=== PATIENT | male | born 1980 | race Caucasian/White ===

== ENCOUNTER 2019-05-22 11:55 | Emergency (ER) | payer BC ==
[~2019-05-22] VITALS: Ht 165.1 cm; Wt 70.3 kg
--- OUTSIDE RECORDS SUMMARY | 2019-05-22 11:58 | XMS REPORT | Clinical Summary ---
Author Author [facility] Address Unknown Phone Unavailable Care Team Providers Care Wind Turbine Erector Name Role Phone Asked, No Pcp PCP Unavailable Allergies Not on File Medications Not on file Active Problems Not on file Social History Date Tobacco Use Types Packs/Day Years Used Never Assessed Sex Assigned at Date Recorded Not on file Industry Job Start Date Occupation Not on file Not on file Not on file Travel End Travel History Travel Start No recent travel history available. 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
--- NOTE | 2019-05-22 12:13 | NUR ---
DAVI KEG RAISER EVALUATED IN TRIAGE
--- NOTE | 2019-05-22 13:48 | Diagnostic Imaging Report ---
History: Fall, hit the posterior head Comparison studies:None Technique: Axial images were obtained from the brain and cervical spine. Coronal and sagittal images reconstructed from the axial data. Intravenous contrast: None Dose modulation, iterative reconstruction, and/or weight based adjustment of the mA/kV was utilized to reduce the radiation dose to as low as reasonably achievable. Findings: Head CT: Scalp/skull: Right parietal ventriculostomy catheter with its tip at the left lateral ventricle body. No fractures, blastic or lytic lesions. Brain sulci: Mildly prominent. Ventricles: Moderately prominent without dilation of the temporal horns or transependymal migration of CSF. Cavum septum pellucidum as a normal variant. No active hydrocephalus. Extra-axial spaces: Enlarged suprasellar and interpeduncular cisterns with nonvisualization of the third ventricle floor and inferior mass effect over the hypothalamus with superior displacement, lateral mass effect over the mesial temporal lobes with lateral displacement and anterior mass effect over the brainstem with posterior displacement, most likely related to the right and a cyst. No fluid acute collections. Parenchyma: No abnormal densities. Thinning of the corpus callosum more significant at the posterior body and splenium. No masses, hemorrhage, acute or chronic cortical vascular insults. Sellar/suprasellar region: Anterior displacement of the optic chiasm and infundibulum with normal appearance of the pituitary gland. Craniocervical junction: Patent foramen magnum. No Chiari one malformation. Atherosclerotic calcifications of the carotid siphons. Opacification of the hypoplastic right frontal and ethmoid sinuses, related to nonspecific inflammation. Under pneumatization and partial opacification of the right mastoid air cells Cervical spine CT: Fractures: None. Soft tissues: No gross abnormalities. Atlantoaxial articulation: Intact. Alignment: Normal lordosis. No scoliosis. Cervicomedullary junction: No abnormalities. Patent foramen magnum. Vertebrae: No infection or neoplasm. Degenerative changes: None. Incidental findings: None. Impression: Head CT: 1. No acute intracranial abnormality. 2. Basal cisterns arachnoid cyst as described above. 3. Moderate ventricular prominence without evidence of active hydrocephalus. Cervical spine CT: 1. No abnormalities. 2. Cannot exclude ligament, spinal cord and or vascular abnormalities on the basis of this examination. Signed by: DR Jefferson Mac M.D. on 05/22/2019 1:45 PM
== END 2019-05-22 14:31 | disposition home or self-care (01) ==
LOC: ER 11:55
DX: S00.93XA Contusion of unspecified part of head, initial encounter (principal); S00.01XA Abrasion of scalp, initial encounter; W17.89XA Other fall from one level to another, initial encounter; Y92.481 Parking lot as the place of occurrence of the external cause; G91.9 Hydrocephalus, unspecified
CPT/HCPCS: 70450; 72125; 99283

== ENCOUNTER 2019-12-13 12:08 | Inpatient (IN) | payer BC ==
[~2019-12-13] VITALS: Ht 165.1 cm; Wt 72.6 kg
--- OUTSIDE RECORDS SUMMARY | 2019-12-13 12:11 | XMS REPORT ---
Author Author [facility] Address Unknown Phone Unavailable Care Team Providers Care Project Structural Engineer Name Role Phone Nilo WHITE [place] Unavailable Unavailable Payers Payer Name Policy Type Policy Number Effective Date Expiration Date Problems This patient has no known problems. Allergies, Adverse Reactions, Alerts Allergy Name Allergy Type Status Severity Reaction(s) Onset Date Inactive Date Treating Clinician Comments No Known Allergies DA Active U 2015-04-15 00:00:00 Medications This patient has no known medications. Results Test Description Test Time Test Comments Text Results Atomic Results Result Comments CT CERVICAL SPINE WO 2019-05-22 13:17:00 [place] [address] Patient Name: ERICKSON HDZ MR #: [id number] : 1980 Age/Sex: 39/M Req #: [id number] Adm Physician: Ordered by: OLYA LIZ MACHINE MOLDER SQUEEZE Report #: [id number] Location: ER Room/Bed: Procedure: [id number] CT/CT CERVICAL SPINE WO Exam Date: 05/22/19 Exam Time: 1210 REPORT STATUS: Signed History: Fall, hit the posterior head Comparison studies:None Technique: Axial images were obtained from the brain and cervical spine. Coronal and sagittal images reconstructed from the axial data. Intravenous contrast: None Dose modulation, iterative reconstruction, and/or weight based adjustment of the mA/kV was utilized to reduce the radiation dose to as low as reasonably achievable. Findings: Head CT: Scalp/sk ull: Right parietal ventriculostomy catheter with its tip at the left lateral ventricle body. No fractures, blastic or lytic lesions. Brain sulci: Mildly prominent. Ventricles: Moderately prominent without dilation of the temporal horns or transependymal migration of CSF. Cavum septum pellucidum as a normal variant. No active hydrocephalus. Extra-axial spaces: Enlarged suprasellar and interpeduncular cisterns with nonvisualization of the third ventricle floor and inferior mass effect over the hypothalamus with superior displacement, lateral mass effect over the mesial temporal lobes with lateral displacement and anterior mass effect over the brainstem with posterior displacement, most likely related to the right and a cyst. No fluid acute collections. Parenchyma: No abnormal densities. Thinning of the corpus callosum more significant at the posterior body and splenium. No masses, hemorrhage, acute or chronic cortical vascular insults. Sellar/supr asellar region: Anterior displacement of the optic chiasm and infundibulum with normal appearance of the pituitary gland. Craniocervical junction: Patent foramen magnum. No Chiari one malformation. Atherosclerotic calcifications of the carotid siphons. Opacification of the hypoplastic right frontal and ethmoid sinuses, related to nonspecific inflammation. Under pneumatization and partial opacification of the right mastoid air cells Cervical spine CT: Fractures: None. Soft tissues: No gross abnormalities. Atlantoaxial articulation: Intact. Alignment: Normal lordosis. No scoliosis. Cervicomedullary junction: No abnormalities. Patent foramen magnum. Vertebrae: No infection or neoplasm. Degenerative changes: None. Incidental findings: None. Impression: Head CT: 1. No acute intracranial abnormality. 2. Basal cisterns arachnoid cyst as described above. 3. Moderate ventricular prominence without evidence of active hydroce phalus. Cervical spine CT: 1. No abnormalities. 2. Cannot exclude ligament, spinal cord and or vascular abnormalities on the basis of this examination. Signed by: DR Jefferson Mac M.D. on 05/22/2019 1:45 PM Dictated By: JEFFERSON CAMACHO MD [id number] Transcribed By: WELLINGTON on 05/22/19 1345 COPY TO: OLYA LIZ MACHINE MOLDER SQUEEZE CT BRAIN WO 2019-05-22 13:17:00 [place] [address] Patient Name: ERICKSON HDZ MR #: [id number] : 1980 Age/Sex: 39/M Req #: [id number] Adm Physician: Ordered by: OLYA LIZ MACHINE MOLDER SQUEEZE Report #: [id number] Location: ER Room/Bed: Procedure: [id number] CT/CT BRAIN WO Exam Date: 05/22/19 Exam Time: 1210 REPORT STATUS: Signed History: Fall, hit the posterior head Comparison studies :None Technique: Axial images were obtained from the brain and cervical spine. Coronal and sagittal images reconstructed from the axial data. Intravenous contrast: None Dose modulation, iterative reconstruction, and/or weight based adjustment of the mA/kV was utilized to reduce the radiation dose to as low as reasonably achievable. Findings: Head CT: Scalp/skull: Right parietal ventriculostomy catheter with its tip at the left lateral ventricle body. No fractures, blastic or lytic lesions. Brain sulci: Mildly prominent. Ventricles: Moderately prominent without dilation of the temporal horns or transependymal migration of CSF. Cavum septum pellucidum as a normal variant. No active hydrocephalus. Extra-axial spaces: Enlarged suprasellar and interpeduncular cisterns with nonvisualization of the third ventricle floor and inferior mass effect over the hypothalamus with superior displacement, lateral mass effect over the mesial temporal lobes with lateral displacement and anterior mass effect over the brainstem with posterior displacement, most likely related to the right and a cyst. No fluid acute collections. Parenchyma: No abnormal densities. Thinning of the corpus callosum more significant at the posterior body and splenium. No masses, hemorrhage, acute or chronic cortical vascular insults. Sellar/suprasellar region: Anterior displacement of the optic chiasm and infundibulum with normal appearance of the pituitary gland. Craniocervical junction: Patent foramen magnum. No Chiari one malformation. Ath erosclerotic calcifications of the carotid siphons. Opacification of the hypoplastic right frontal and ethmoid sinuses, related to nonspecific inflammation. Under pneumatization and partial opacification of the right mastoid air cells Cervical spine CT: Fractures: None. Soft tissues: No gross abnormalities. Atlantoaxial articulation: Intact. Alignment: Normal lordosis. No scoliosis. Cervicomedullary junction: No abnormalities. Patent foramen magnum. Vertebrae: No infection or neoplasm. Degenerative changes: None. Incidental findings: None. Im pression: Head CT: 1. No acute intracranial abnormality. 2. Basal cisterns arachnoid cyst as described above. 3. Moderate ventricular prominence without evidence of active hydrocephalus. Cervical spine CT: 1. No abnormalities. 2. Cannot exclude ligament, spinal cord and or vascular abnormalities on the basis of this examination. Signed by: DR Jefferson Mac M.D. on 05/22/2019 1:45 PM Dictated By: JEFFERSON MAC MD 1344 Transcribed By: WELLINGTON on 05/22/19 1340 COPY TO: OLYA LIZ NP
--- NOTE | 2019-12-13 12:33 | NUR ---
DR. WHITE AT BEDSIDE EVALUATING PATIENT
[2019-12-13 12:39] LABS: BASOPHILS # (AUTO) 0.1 (0.0-0.1); BASOPHILS % 1.4 % (0.0-1.0); EOSINOPHILS # (AUTO) 0.4 (0.0-0.4); EOSINOPHILS % 5.4 % (0.0-6.0); HEMATOCRIT 29.3 % (38.2-49.6); HEMOGLOBIN 9.6 g/dL (14.0-18.0); LYMPHOCYTES # (AUTO) 2.7 (1.0-3.2); LYMPHOCYTES % 34.7 % (18.0-39.1); MEAN CORPUSCULAR HEMOGLOBIN 34.2 pg (28-32); MEAN CORPUSCULAR HGB CONC 32.8 g/dL (31-35); MEAN CORPUSCULAR VOLUME 104.3 fL (81-99); MONOCYTES # (AUTO) 0.5 (0.2-0.8); MONOCYTES % 6.7 % (4.4-11.3); NEUTROPHILS # (AUTO) 3.9 (2.1-6.9); NEUTROPHILS % 50.2 % (38.7-80.0); PLATELET COUNT 221 x10e3/uL (140-360); RED BLOOD COUNT 2.81 x10e6/uL (4.3-5.7); RED CELL DISTRIBUTION WIDTH 14.1 % (11.7-14.4)
[2019-12-13] MEDS ORDERED: SODIUM CHLORIDE 0.9% 1000ML 1,000 ML IV STA ×2 (12:41→14:00)
[2019-12-13] MEDS ORDERED: ONDANSETRON HCL INJ 2MG/ML 2ML 2 MG/ML VIAL IV NR (12:45)
[2019-12-13 13:00] LABS: ALANINE AMINOTRANSFERASE 27 IU/L (0-55); ALBUMIN/GLOBULIN RATIO 1.5 (0.8-2.0); ALKALINE PHOSPHATASE 37 IU/L (40-150); AMYLASE 102 U/L (25-125); ANION GAP 11.2 mmol/L (8-16); BLOOD UREA NITROGEN 18 mg/dL (7-26); BUN/CREATININE RATIO 9 (6-25); CALCIUM 8.6 mg/dL (8.4-10.2); CARBON DIOXIDE 26 mmol/L (22-29); CHLORIDE 105 mmol/L (98-107); CREATINE KINASE 2023 IU/L (30-200); CREATININE, SERUM 2.04 mg/dL (0.72-1.25); EST GLOMERULAR FILTRATION RATE 36 ML/MIN (60-); GLUCOSE 145 mg/dL (74-118); LIPASE 86 U/L (8-78); POTASSIUM 3.2 mmol/L (3.5-5.1); SODIUM 139 mmol/L (136-145)
--- NOTE | 2019-12-13 13:19 | Diagnostic Imaging Report ---
Examination: Single AP view of the chest. COMPARISON: None. INDICATION: Nausea and dizziness DISCUSSION: Lines/tubes: The patient catheter. Lungs: The lungs are well inflated and clear. No pneumonia or pulmonary edema. Pleura: No pleural effusion or pneumothorax. Heart and mediastinum: Cardiomegaly. Bones and soft tissues: No acute bony abnormalities. IMPRESSION: 1. Cardiomegaly without decompensation Signed by: Dr. Raman Nolen M.D. on 12/13/2019 1:15 PM
--- NOTE | 2019-12-13 13:37 | Diagnostic Imaging Report ---
History:Weakness, dizziness Comparison studies: Head CT on 05/22/2019 Technique: Axial images were obtained from the skull base to the vertex. Coronal and sagittal images reconstructed from the axial data. Dose modulation, iterative reconstruction, and/or weight based adjustment of the mA/kV was utilized to reduce the radiation dose to as low as reasonably achievable. Intravenous contrast: None Findings: Scalp/skull: A right inferior parietal shunt catheter remains in place with its tip across midline in the body of the left lateral ventricle. Old bilateral frontal zandra holes are still visualized. Extra-axial spaces: Diffusely enlarged basal cisterns (due to an arachnoid or neuroepithelial cyst), remains associated with superior and anterior displacement of the the floor of the third ventricle and anterior displacement of the pituitary stalk and optic chiasm. Brain sulci: Moderately prominent more than expected for patient's age. Ventricles: The third and lateral ventricles remain moderately dilated but the fourth is relatively normal in size. No hypodensities the margins of the lateral ventricles to suggest the presence of acute hydrocephalus. Parenchyma: No abnormal densities No masses, hemorrhage, acute or chronic cortical vascular insults. Sellar/suprasellar region: No intrasellar abnormalities Craniocervical junction: Patent foramen magnum. No Chiari one malformation. Incidental findings: Atherosclerotic calcifications in the carotid siphons . Impression: 1. No acute abnormalities. 2. No changes when compared to the head CT on 05/22/2019 Persistent findings: 1. Right inferior parietal shunt catheter in place. 2. An arachnoid cyst in the basal cisterns remains associated with moderate dilatation of the third and lateral ventricles. The dilatation is chronic and probably compensated 3. Moderate generalized volume loss is more than expected for patient's age Signed by: Dr. Tam Alas M.D. on 12/13/2019 1:34 PM
[2019-12-13] MEDS ORDERED: SODIUM CHLORIDE 0.9% 1000ML 1,000 ML ONE (14:06)
[2019-12-13 14:17] LABS: COLOR,URINE YELLOW (YELLOW)
[2019-12-13 14:18] LABS: CLARITY,URINE CLEAR (CLEAR); KETONES,URINE NEGATIVE (NEGATIVE); LEUKOCYTE ESTERASE ,URINE NEGATIVE (NEGATIVE); NITRITE,URINE NEGATIVE (NEGATIVE); PROTEIN,URINE DIPSTICK TRACE (NEGATIVE)
[2019-12-13 14:19] LABS: AMPHETAMINES SCREEN,URINE NEGATIVE (NEGATIVE); BENZODIAZEPINES SCREEN,URINE NEGATIVE (NEGATIVE); PHENCYCLIDINE SCREEN,URINE NEGATIVE (NEGATIVE)
[2019-12-13 14:20] LABS: BILIRUBIN,URINE NEGATIVE (NEGATIVE); URINE UROBILINOGEN 0.2 mg/dL (0.2 - 1)
[2019-12-13] MEDS ORDERED: ONDANSETRON HCL INJ 2MG/ML 2ML 2 MG/ML VIAL IV PRN (14:30)
[2019-12-13 14:36] LABS: BACTERIA,URINE RARE /HPF; EPITHELIAL CELLS,URINE FEW /LPF
[2019-12-13] MEDS ORDERED: POTASSIUM CHLORIDE 20 MEQ TAB CR PO NR (15:00)
[2019-12-13] MEDS: FAMOTIDINE 20 MG/2 ML VIAL IV SCH (15:20)
[2019-12-13] MEDS: SODIUM CHLORIDE 0.9% 1000ML 1,000 ML IV SCH ×3 (15:21→22:45)
--- NOTE | 2019-12-13 15:29 | NUR ---
REC'D REPORT FROM ANDREINA LARSON FOR CONTINUITY OF CARE.
--- NOTE | 2019-12-13 15:40 | NUR ---
report called to reese gonzales for this pt to go to [id number]
[2019-12-13 16:24] VITALS: BP 134/81
--- NOTE | 2019-12-13 16:53 | NUR ---
ASSUMED CARE AT 1600. PT RESTING IN BED. ACYANOTIC. NO DISTRESS NOTED. PATIENT'S MOTHER PRESENT AT BEDSIDE.
[2019-12-13] MEDS ORDERED: HYDRALAZINE HCL 20 MG/ML VIAL IV PRN (17:00)
--- NOTE | 2019-12-13 17:27 | NUR ---
NOTIFIED JULEE WRIGHT NP OF PATIENT'S REQUEST FOR PAIN MEDICATION FOR PAIN REPORTED IN LOWER BACK. NEW ORDERS NOTED.
[2019-12-13] MEDS ORDERED: TRAMADOL HCL 50 MG TAB PO PRN (17:30)
--- NOTE | 2019-12-13 17:32 | NUR ---
NEW THERMOMETER TO PATIENT'S ROOM. BODY TEMPERATURE MEASURING 97.1 DEGREES F ORAL.
[2019-12-13] MEDS ORDERED: MORPHINE SULFATE 2 MG/ML SYR 1ML IV PRN (18:00)
[2019-12-13 18:55] LABS: CREATINE KINASE 2005 IU/L (30-200)
--- NOTE | 2019-12-13 19:10 | NUR ---
Pt awake alert and oriented. Resting in bed. Call light in reach. Bed low. No distress noted. Report given to ANDREINA Luna.
[2019-12-13 20:14] VITALS: BP 145/91
[2019-12-13 21:30] VITALS: BP 145/91
--- NOTE | 2019-12-13 21:30 | NUR ---
PATIENT RESTING IN BED AOX3, NO SIGNS OF DISTRESS NOTED. IV FLUIDS ARE RUNNING AT ORDERED RATE AND PATIENT VOICES NO PAIN AT THIS TIME. PATIENT USING URINAL AND URINE IS PALE YELLOW AND CLEAR, INSTRUCTED TO USE CALL LIGHT FOR ASSISTANCE TO RESTROOM DUE TO SYNCOPE AND PREVIOUS FALL AT HOME. BED IS IN LOWEST POSITION, BOTH SIDE RAILS ARE UP, CALL LIGHT IS WITH IN EASY REACH, WILL CONTINUE TO MONITOR.
[2019-12-14] VITALS (9 sets, daily range): BP systolic 113–162; BP diastolic 74–96
[2019-12-14] MEDS: FAMOTIDINE 20 MG/2 ML VIAL IV SCH ×2 (02:47→16:50)
[2019-12-14] MEDS: SODIUM CHLORIDE 0.9% 1000ML 1,000 ML IV SCH (05:51)
[2019-12-14 06:03] LABS: BASOPHILS # (AUTO) 0.1 (0.0-0.1); BASOPHILS % 1.5 % (0.0-1.0); EOSINOPHILS # (AUTO) 0.3 (0.0-0.4); EOSINOPHILS % 4.5 % (0.0-6.0); HEMATOCRIT 27.5 % (38.2-49.6); LYMPHOCYTES # (AUTO) 2.1 (1.0-3.2); MEAN CORPUSCULAR HEMOGLOBIN 34.2 pg (28-32); MEAN CORPUSCULAR HGB CONC 32.7 g/dL (31-35); MEAN CORPUSCULAR VOLUME 104.6 fL (81-99); MONOCYTES # (AUTO) 0.4 (0.2-0.8); MONOCYTES % 6.3 % (4.4-11.3); NEUTROPHILS # (AUTO) 3.2 (2.1-6.9); NEUTROPHILS % 52.2 % (38.7-80.0); PLATELET COUNT 199 x10e3/uL (140-360); RED BLOOD COUNT 2.63 x10e6/uL (4.3-5.7)
[2019-12-14 06:36] LABS: ALBUMIN 3.5 g/dL (3.5-5.0); ALBUMIN/GLOBULIN RATIO 1.3 (0.8-2.0); ANION GAP 10.4 mmol/L (8-16); CALCIUM 8.1 mg/dL (8.4-10.2); CREATININE, SERUM 1.45 mg/dL (0.72-1.25); POTASSIUM 3.4 mmol/L (3.5-5.1)
[2019-12-14 06:47] LABS: CREATINE KINASE 1791 IU/L (30-200)
[2019-12-14 07:05] LABS: MAGNESIUM 1.7 MG/DL (1.3-2.1); PHOSPHORUS 2.4 MG/DL (2.3-4.7)
[2019-12-14] MEDS: ASPIRIN 81 MG ENTERIC COATED PO SCH (08:55)
[2019-12-14 09:03] LABS: THYROID STIMULATING HORMONE 185.844 uIU/mL (0.350-4.940)
--- NOTE | 2019-12-14 09:41 | NUR ---
PATIENT RESTING UP IN BED, ALERT WITH NO DISTRESS, NO C/O DIZZY THIS TIME, KEEP MONITORING
[2019-12-14] MEDS ORDERED: LEVOTHYROXINE SODIUM 50 MCG TAB PO SCH (13:00)
[2019-12-14] MEDS ORDERED: ASPIRIN 81 MG CHEW TAB PO ONE (13:00)
[2019-12-14] MEDS ORDERED: MAGNESIUM SULF 1GRAM/DEXTROSE 100 ML IV ONE (13:00)
--- NOTE | 2019-12-14 13:10 | NUR ---
Pt out of room and no family at bedside. Recycling Sorter will follow up as able. GILLIAN MYERS Recycling Sorter Spiritual Care Department O: [phone]
[2019-12-14] MEDS ORDERED: ONDANSETRON HCL 4 MG ORAL DISINTEGRATING TAB PO PRN (13:15)
[2019-12-14] MEDS ORDERED: SODIUM CHLORIDE 0.9% 1000ML 1,000 ML IV ONE (13:15)
[2019-12-14] MEDS ORDERED: POTASSIUM CHLORIDE 20 MEQ TAB CR PO ONE (15:00)
[2019-12-14 19:01] LABS: FREE T4 (FREE THYROXINE) < 0.40 ng/dL (0.8-1.8)
--- NOTE | 2019-12-14 19:24 | NUR ---
Received change of shift report from AM shift. Walking rounds completed.
--- NOTE | 2019-12-14 19:26 | Consultation ---
DATE OF CONSULTATION: Endocrine Consultation This is a patient of Dr. Klein. Thank you very much for referring this patient. HISTORY OF PRESENT ILLNESS: This is a 39-year-old white male gentleman, who was referred to me for evaluation of severe hypothyroidism. The patient came to the hospital with history of dizziness and nausea. On further evaluation, patient was found to have severe rhabdomyolysis with very high creatine kinase. The patient does not have history of any thyroid problems in the past. He has a significant history of having hydrocephalus at early age and he also has history of having had precocious puberty. There is some questionable history of pituitary cyst in the past. The patient was . He has three kids and the youngest child is around 10-year-old. He had history of knee surgery done in the past. He does not take any routine medications at home. During the hospital stay, his hemoglobin is low at 9.0 with a hematocrit of 27.5. His TSH is 185.844. His BUN and creatinine at the time of admission were 18 and 2.04 and his creatine kinase was 2022. PHYSICAL EXAMINATION: GENERAL: Today, the patient is alert, awake, he is grossly myxedematous. He has delayed relaxation of the ankle reflexes. VITAL SIGNS: Heart rate is around 60. Blood pressure is 130/80 mmHg. HEENT: Essentially unremarkable. Thyroid is barely palpable. CHEST: Bilateral vesicular breathing. He has bilateral bronchospasm. CARDIOVASCULAR: First and second heart sounds. There is no 3rd or 4th heart sound. Ejection systolic murmur is grade 2/6. CLINICAL IMPRESSION: Severe hypothyroidism, history of hydrocephalus, acute rhabdomyolysis, anemia. PLAN: At this time is to do a free T4, TSH and peroxidase antibody. We will also start him on the thyroid medications and slowly increase the dose. We will also do a testosterone and prolactin level. Thanks again for referring this patient. I will be following this patient with you. MD KATERINA Almonte/STEFANY /[id number]
--- NOTE | 2019-12-14 20:16 | Consultation ---
DATE OF CONSULTATION: 12/14/2019 Renal Consultation REASON FOR CONSULTATION: Acute kidney injury and rhabdomyolysis. HISTORY OF PRESENT ILLNESS: A 39-year-old male with history of hydrocephalus, who presented to [facility] for the weakness, dizziness, and fall. The patient states that he was taking a shower and began to feel dizzy, he attempted to sit down on the toilet when he fell and was brought to the emergency room. The patient denies having any new medications or any other trauma. He was found to have acute kidney injury and rhabdomyolysis, was started on IV fluids and Nephrology consultation was called. The patient denies having any history of kidney problems in the past. REVIEW OF SYSTEMS: A 12-point review of systems completed. All systems negative other than mentioned in the HPI above. PAST MEDICAL HISTORY: History of hydrocephalus requiring 2 brain surgeries And VISUAL PRESENTATION MANAGER shunt placement. PAST SURGICAL HISTORY: 1. Knee surgery. 2. Vasectomy. SOCIAL HISTORY: No tobacco. Occasional alcohol. No IV drugs. FAMILY HISTORY: No family history of kidney disease. ALLERGIES: NO KNOWN DRUG ALLERGIES. CURRENT MEDICATIONS: See list. PHYSICAL EXAMINATION: VITAL SIGNS: Blood pressure 125/81, pulse 70, respiratory rate 18, and temperature 98. GENERAL: No apparent distress. HEENT: Oropharynx clear. No scleral icterus. No peripheral edema. NECK: Supple. No elevation in jugular venous pressure. No lymphadenopathy. CHEST: Clear to auscultation anteriorly bilaterally. CARDIOVASCULAR: Regular rhythm. No murmurs or rubs. ABDOMEN: Soft. Positive bowel sounds. No tenderness. No rebound. EXTREMITIES: No edema. No clubbing. No cyanosis. SKIN: Warm. LABORATORY DATA: Sodium 139, potassium 3.4, chloride 109, CO2 of 23, BUN 13, creatinine 1.45, and CK 1791, down from 2004. Creatinine on admission was 2.04. Cholesterol 228, TSH 186. ASSESSMENT AND PLAN: 1. Acute kidney injury, suspect secondary to volume depletion. CK is not high enough to cause kidney failure. We will continue with IV fluids. 2. Rhabdomyolysis, suspect secondary to severe hypothyroidism. Continue with fluids and restarted on Synthroid. 3. Euvolemic to dry on exam. Continue IV fluids as above. 4. Hypokalemia. Potassium replaced. MD VENUS Kay/STEFANY /[id number]
--- NOTE | 2019-12-14 20:37 | NUR ---
Patient in bed. AAOx3. Denies pain at this time. IV dry and intact to left AC 20G. 3rd bolus completed HL IV.
--- NOTE | 2019-12-14 23:57 | NUR ---
Patient resting quitly with no c/o at this time. Continue monitor.
[2019-12-15] VITALS (7 sets, daily range): BP systolic 121–162; BP diastolic 73–89
[2019-12-15] MEDS: FAMOTIDINE 20 MG/2 ML VIAL IV SCH ×2 (01:43→16:20)
--- NOTE | 2019-12-15 02:11 | NUR ---
Patient up to shower.
[2019-12-15] MEDS ORDERED: LEVOTHYROXINE SODIUM 75 MCG TAB PO SCH (06:00)
[2019-12-15 06:08] LABS: BASOPHILS # (AUTO) 0.1 (0.0-0.1); BASOPHILS % 1.3 % (0.0-1.0); EOSINOPHILS # (AUTO) 0.3 (0.0-0.4); HEMATOCRIT 28.4 % (38.2-49.6); HEMOGLOBIN 9.4 g/dL (14.0-18.0); LYMPHOCYTES # (AUTO) 1.9 (1.0-3.2); LYMPHOCYTES % 30.5 % (18.0-39.1); MEAN CORPUSCULAR HEMOGLOBIN 34.8 pg (28-32); MEAN CORPUSCULAR HGB CONC 33.1 g/dL (31-35); MEAN CORPUSCULAR VOLUME 105.2 fL (81-99); MONOCYTES # (AUTO) 0.6 (0.2-0.8); MONOCYTES % 9.1 % (4.4-11.3); NEUTROPHILS # (AUTO) 3.3 (2.1-6.9); NEUTROPHILS % 53.6 % (38.7-80.0); PLATELET COUNT 196 x10e3/uL (140-360)
[2019-12-15 06:24] LABS: ANION GAP 9.9 mmol/L (8-16); CALCIUM 8.5 mg/dL (8.4-10.2); CREATININE, SERUM 1.61 mg/dL (0.72-1.25); POTASSIUM 3.9 mmol/L (3.5-5.1)
[2019-12-15 06:40] LABS: PHOSPHORUS 2.5 MG/DL (2.3-4.7)
[2019-12-15] MEDS: ASPIRIN 81 MG ENTERIC COATED PO SCH (09:23)
[2019-12-15] MEDS ORDERED: SODIUM CHLORIDE 0.9% 1000ML 1,000 ML ONE (10:28)
[2019-12-15 12:54] LABS: CREATINE KINASE 1723 IU/L (30-200)
[2019-12-15] MEDS: SODIUM CHLORIDE 0.9% 1000ML 1,000 ML IV SCH (12:55)
--- NOTE | 2019-12-15 16:38 | Diagnostic Imaging Report ---
TECHNIQUE: Grayscale ultrasound of the kidneys and bladder. INDICATION: 39-year-old man with chronic kidney disease. COMPARISON: None. FINDINGS: RIGHT KIDNEY: The right kidney is echogenic and measures 13.9 x 9.8 x 8.1 cm. Cortical thickness measures approximately 0.9 cm. No solid mass lesions. Multiple cysts in the right kidney measure up to 10.1 x 11.8 x 7.6 cm, some of which contain thin internal septations. No hydronephrosis. LEFT KIDNEY: The left kidney is echogenic and measures 13.4 x 8.6 x 6.4 cm. Cortical thickness measures approximately 0.4 cm. No solid mass lesions. Multiple cysts in the left kidney measure up to 5.1 x 5.7 x 5.6 cm, some of which contain thin internal septations. No hydronephrosis. BLADDER: Bladder is unremarkable in appearance. Prevoid bladder volume measures 493 cc. Postvoid residual bladder volume measures 20 cc. IMPRESSION: Echogenic kidneys, consistent with medical renal disease. Multiple cysts in both kidneys. Signed by: Leatha Connell MD on 12/15/2019 4:35 PM
--- NOTE | 2019-12-15 19:26 | NUR ---
Paged Dr Beatty regarding Renal US result
[2019-12-16] VITALS: BP 103/68
[2019-12-16] MEDS: FAMOTIDINE 20 MG/2 ML VIAL IV SCH (02:30)
[2019-12-16 04:00] VITALS: BP 130/86
[2019-12-16] MEDS ORDERED: LEVOTHYROXINE SODIUM 100 MCG TAB PO SCH (06:00)
[2019-12-16 06:31] LABS: BASOPHILS # (AUTO) 0.1 (0.0-0.1); BASOPHILS % 1.3 % (0.0-1.0); EOSINOPHILS # (AUTO) 0.3 (0.0-0.4); EOSINOPHILS % 5.1 % (0.0-6.0); HEMATOCRIT 29.8 % (38.2-49.6); HEMOGLOBIN 9.5 g/dL (14.0-18.0); LYMPHOCYTES # (AUTO) 2.1 (1.0-3.2); LYMPHOCYTES % 38.8 % (18.0-39.1); MEAN CORPUSCULAR HEMOGLOBIN 34.1 pg (28-32); MEAN CORPUSCULAR HGB CONC 31.9 g/dL (31-35); MEAN CORPUSCULAR VOLUME 106.8 fL (81-99); MONOCYTES # (AUTO) 0.6 (0.2-0.8); NEUTROPHILS # (AUTO) 2.5 (2.1-6.9); NEUTROPHILS % 44.4 % (38.7-80.0); PLATELET COUNT 197 x10e3/uL (140-360); RED BLOOD COUNT 2.79 x10e6/uL (4.3-5.7)
[2019-12-16 06:54] LABS: ANION GAP 9.1 mmol/L (8-16); CALCIUM 8.4 mg/dL (8.4-10.2); CREATININE, SERUM 1.89 mg/dL (0.72-1.25); POTASSIUM 4.1 mmol/L (3.5-5.1)
[2019-12-16 07:20] VITALS: BP 119/83
--- NOTE | 2019-12-16 07:20 | NUR ---
PATIENT SITTING UP IN BED TALKING ON THE PHONE, NO DISTRESS NOTED. IV FLUID INFUSING ORDERED. CALL LIGHT AT REACH.
[2019-12-16] MEDS: SODIUM CHLORIDE 0.9% 1000ML 1,000 ML IV SCH (07:21)
[2019-12-16 07:32] VITALS: BP 119/83
[2019-12-16] MEDS: ASPIRIN 81 MG ENTERIC COATED PO SCH (09:18)
[2019-12-16] MEDS ORDERED: SYNTHROID100 MCG PO (10:58)
[2019-12-16] MEDS ORDERED: ASPIRIN EC81 MG PO (10:58)
[2019-12-16 11:19] VITALS: BP_SYST 133; BP_SYST 151; BP_DIAS 61; BP_DIAS 90
--- NOTE | 2019-12-16 12:09 | Discharge Summary ---
CHIEF COMPLAINT: Weakness and dizziness. HISTORY OF PRESENT ILLNESS: Mr. Manning is a 39-year-old male, who got out of the shower to defecate. He became dizzy and fell off the toilet, was brought in by EMS to the emergency department and found to have severe nontraumatic rhabdomyolysis with creatine kinase 2022. Head CT was negative. He denied hitting his head at that time. Plans were to treat dehydration and monitor for any signs and symptoms of syncope. PAST MEDICAL HISTORY: Includes hydrocephalus with shunt, fluid-filled cyst at the back of the brain. PAST SURGICAL HISTORY: In 1987, he had a right inferior parietal shunt for hydrocephalus, left knee arthroscopy, and vasectomy. FAMILY HISTORY: Mother had neuropathy, fibromyalgia, and thyroid issues as well as incontinence. The patient's father had diabetes mellitus and cardiac problems. There was CHF, emphysema, diabetes mellitus on the mother side. His paternal aunts and uncles all had kidney issues. SOCIAL HISTORY: Denies previous use of tobacco or illicit drugs. He drinks alcohol occasionally. ALLERGIES: NO KNOWN ALLERGIES. ADMITTING DIAGNOSES: 1. Severe nontraumatic rhabdomyolysis. 2. Severe hypothyroidism/myxedema. 3. Acute hypokalemia. 4. Acute hypomagnesemia. 5. Hyperlipidemia. DISCHARGE DIAGNOSES: 1. Severe hypothyroidism/myxedema. 2. Severe nontraumatic rhabdomyolysis, likely due to hypothyroidism. 3. Acute kidney injury, possibly on chronic kidney disease, possible polycystic kidney disease. 4. Anemia, possibly due to polycystic kidney disease. 5. Hyperlipidemia. 6. History of pituitary cyst. On admission, WBC 7.66, hemoglobin 9.6, hematocrit 29.3, and platelets 221. Sodium 139, potassium 3.2, chloride 105, CO2 26, BUN 18, creatinine 2.04, estimated GFR 36, glucose 145, and calcium 8.6. Total bilirubin 0.6, AST 71, ALT 27, and alkaline phosphatase 37. Creatine kinase 2022, CK-MB 9.8, and troponin I less than 0.001. Total protein 6.7, albumin 4, amylase 102, lipase 86. The lipase increased to 97. Creatine kinase improved to 1723. CK-MB on December 14 was 12.5. Troponin I remained within normal limits. On December 13, phosphorus 2.4 and magnesium 1.7. TSH 185.884. TSH was repeated and was found to be 213.16 on December 13. The patient was started on levothyroxine at 50 mcg per day and Dr. Crabtree with Endocrinology was consulted. Dr. Enrique Beatty with Nephrology was also consulted. The patient's prolactin level was 41.3 on December 13. Total testosterone and free testosterone remain pending. Free T4 was less than 0.4. Urinalysis had shown a trace amount of protein, trace amount of blood, rbc 6 to 10, and wbc 6 to 10. Urine drug screen was negative. Thyroid peroxidase antibody was 33. Final urine culture showed no growth after 36 to 48 hours. Chest x-ray on December 12 showed cardiomegaly without decompensation. The brain CT was negative for acute abnormalities and was unchanged with compared to the CT of the head done on 05/22/2019. Persistent findings include right inferior parietal shunt catheter in place and an arachnoid cyst in the basal cisterns remaining, which is associated with moderate dilation of the 3rd and lateral ventricles. The dilation is chronic and probably compensated. Moderate generalized volume loss is more than expected for the patient's age. A renal ultrasound was completed on December 14 showing echogenic kidneys consistent with medical renal disease as well as multiple cysts in both kidneys. Today the day of discharge, sodium 136, potassium 4.1, chloride 108, CO2 23, BUN 17, creatinine 1.89, estimated GFR 40, glucose 79, and calcium 8.4. Lipase 97. Dr. Beatty with Nephrology is aware. The patient is to follow up with him in 3 to 4 weeks. He is to follow up with Dr. Crabtree with Endocrinology in 1 to 2 weeks and follow up with his PCP, Dr. Bailey in 1 to 2 weeks. Continue cardiac diet. Activity level as tolerated. Continue taking levothyroxine, which is currently at 100 mcg per day as well as aspirin. Dictated by Erich Weber, AKOSUA Jim Gomez MD [facility] /[id number]
--- NOTE | 2019-12-16 13:00 | NUR ---
PATIENT DISCHARGED HOME. DISCHARGE INSTRUCTIONS, PRESCRIPTIONS AND FOLLOW UP GIVEN TO PATIENT, HE VERBALIZED UNDERSTANDING. IV TO LEFT AC REMOVED WITH TIP INTACT. ALL PERSONAL ITEMS TAKEN WITH PATIENT. REFUSED WHEEL CHAIR, BUT WAS ACCOMPANIED BY HOSPITAL STAFF TO FRONT LOBBY IN STABLE CONDITION.
[2019-12-16] MEDS ORDERED: FAMOTIDINE 20 MG TAB PO SCH (16:30)
== END 2019-12-16 12:53 | disposition home or self-care (01) | DRG 644 ==
LOC: ER 12:08 → ERHOLD 14:36 → MED/SURG3 16:01 → OBSVTOIN 12-15 14:00
PROVIDERS: ADMIT Internal Medicine; ATTEND Internal Medicine
DX: E03.9 Hypothyroidism, unspecified (principal); N17.9 Acute kidney failure, unspecified; M62.82 Rhabdomyolysis; Q61.3 Polycystic kidney, unspecified; D64.9 Anemia, unspecified; E83.42 Hypomagnesemia; E78.5 Hyperlipidemia, unspecified; E87.6 Hypokalemia; Z66 Do not resuscitate; D63.1 Anemia in chronic kidney disease; N18.3 Chronic kidney disease, stage 3 (moderate)
CPT/HCPCS: 36415; 70450; 71045; 76770; 80048; 80053; 80061; 80307; 81001; 82150; 82550; 82553; 83036; 83690; 83735; 84100; 84146; 84402; 84439; 84443; 84484; 85025; 86376; 87086; 93005; 99284; G0378; J2405; J3475; J7030